=== PATIENT | male | born 1985 | race Caucasian/White ===

== ENCOUNTER 2017-08-30 19:35 | Emergency (ER) | payer OTHER ==
[~2017-08-30] VITALS: Ht 170.2 cm; Wt 122.7 kg
[2017-08-30 21:54] LABS: HEMATOCRIT 44.8 % (38.0-50.0); HEMOGLOBIN 15.7 G/DL (12.5-16.6); MCH 29.4 PG (29.0-34.0); MCV 83.9 FL (86-99); PLATELET COUNT 327 K/uL (156-360); RBC DIS.WIDTH-CV 13.2 % (11.8-14.6); RBC DIS.WIDTH-SD 40.4 % (39-53); RED BLOOD COUNT 5.34 M/uL (4.00-5.50); WHITE BLOOD COUNT 14.3 K/uL (4.1-10.2)
[2017-08-30 22:03] LABS: ALBUMIN 4.5 g/dL (3.2-4.8)
[2017-08-30 22:04] LABS: CHLORIDE 106 mEq/L (99-109); POTASSIUM 3.8 mEq/L (3.7-5.4); SODIUM 140 mEq/L (136-147)
[2017-08-30 22:06] LABS: GLUCOSE 100 mg/dL (70-99); TOTAL PROTEIN 7.5 g/dL (6.4-8.3)
[2017-08-30 22:08] LABS: TOTAL BILIRUBIN 0.6 mg/dL (0.0-1.0)
[2017-08-30 22:09] LABS: ALKALINE PHOSPHATASE 63 IU/L (3-129)
[2017-08-30 22:10] LABS: GFR ESTIMATE (CALCULATED) > 59 mL/min/ (58.99-99999)
[2017-08-30 22:11] LABS: ERTH.SED.RATE 27 MM/HR (0-15)
[2017-08-30 22:11] LABS: AST (GOT) 17 IU/L (2-34); UREA NITROGEN (BUN) 18 mg/dL (9-23)
[2017-08-30 22:12] LABS: ALT (GPT) 41 IU/L (3-49)
[2017-08-30] MEDS ORDERED: PREDNISONE20 MG PO (22:46)
[2017-08-30] MEDS ORDERED: DURAGESIC75 MCG TD (22:46)
[2017-08-30] MEDS ORDERED: ATIVAN2 MG PO (22:46)
[2017-08-30 22:53] LABS: C-REACTIVE PROTEIN 6.2 MG/L (0-10)
[2017-08-30 23:35] VITALS: BP 104/47
== END 2017-08-30 23:35 | disposition home or self-care (01) ==
LOC: EME 19:35
PROVIDERS: Nurse Practitioner Family
DX: M54.31 Sciatica, right side (principal); G89.29 Other chronic pain; M51.36 Other intervertebral disc degeneration, lumbar region; Z98.890 Other specified postprocedural states
CPT/HCPCS: 72100; 80053; 85027; 85651; 86140; 99281; 99285; J1885; J2060; J7030